=== PATIENT | male | born 1945 | race Asian ===

== ENCOUNTER 2019-05-12 15:04 | Observation (INO) | payer BC ==
[~2019-05-12] VITALS: Ht 175.3 cm; Wt 58.1 kg
[2019-05-12 16:58] LABS: PLATELET COUNT 397 K/uL (142-355)
[2019-05-12 17:07] VITALS: BP 137/64; TEMP 99.1; Ht 175.3 cm; Wt 58.1 kg
[2019-05-12 17:18] LABS: POTASSIUM 4.2 mmol/L (3.6-5.2); SODIUM 138 mmol/L (136-145)
[2019-05-12 17:20] LABS: PARTIAL THROMBOPLASTIN TIME 26.1 SECONDS (24.5-33.6)
[2019-05-12] MEDS ORDERED: LOTENSIN HCT1 TAB PO (17:56)
[2019-05-12] MEDS ORDERED: TAMS0.4C PO (17:57)
[2019-05-12] MEDS ORDERED: AMLODIPINE BESYLATE PO (17:57)
[2019-05-12] MEDS ORDERED: LIPITOR10 MG PO (17:58)
[2019-05-12 20:00] VITALS: BP 146/65; TEMP 99.1
[2019-05-13] VITALS (7 sets, daily range): BP systolic 118–150; BP diastolic 60–73; TEMP 97.8–99.5
[2019-05-13 05:34] LABS: PLATELET COUNT 383 K/uL (142-355)
[2019-05-13 05:51] LABS: POTASSIUM 4.1 mmol/L (3.6-5.2)
[2019-05-14 03:51] VITALS: BP 134/67; TEMP 98.9
[2019-05-14 05:30] LABS: PLATELET COUNT 357 K/uL (142-355)
[2019-05-14 05:31] LABS: POTASSIUM 3.9 mmol/L (3.6-5.2)
[2019-05-14 08:00] VITALS: BP 142/64; TEMP 98.3
[2019-05-14 12:00] VITALS: BP 174/80; TEMP 97.9
[2019-05-14 16:00] VITALS: BP 174/80; TEMP 97.9
[2019-05-14 19:58] VITALS: BP 153/56; TEMP 97.9
== END 2019-05-14 21:20 | disposition home or self-care (01) ==
LOC: MED/SURG 15:04
PROVIDERS: ADMIT Family Medicine
DX: R19.7 Diarrhea, unspecified (principal); R10.9 Unspecified abdominal pain; K59.00 Constipation, unspecified; R07.89 Other chest pain; R63.4 Abnormal weight loss; F17.210 Nicotine dependence, cigarettes, uncomplicated; J44.9 Chronic obstructive pulmonary disease, unspecified; R53.83 Other fatigue; R06.00 Dyspnea, unspecified; F43.23 Adjustment disorder with mixed anxiety and depressed mood
CPT/HCPCS: 36415; 80053; 82550; 82948; 83605; 83735; 84153; 84443; 84484; 85027; 85379; 85610; 85730; 93005; 96361; 96365; 96366; 96372; 99220; G0378; G0379; J1650; Q9963

== ENCOUNTER 2019-05-17 07:59 | Outpatient (CLI) | payer BC ==
[~2019-05-17 07:59] MED LIST: AMLODIPINE BESYLATE PO; LIPITOR10 MG PO; LOTENSIN HCT1 TAB PO; TAMS0.4C PO
== END 2019-05-17 18:57 | disposition home or self-care (01) ==
LOC: NM 07:59
DX: R07.89 Other chest pain (principal)
CPT/HCPCS: A9500

== ENCOUNTER 2019-05-18 14:03 | Outpatient (CLI) | payer BC ==
[2019-05-18 14:18] LABS: PLATELET COUNT 405 K/uL (142-355)
[2019-05-18 14:22] LABS: POTASSIUM 4.2 mmol/L (3.6-5.2)
== END 2019-05-18 19:30 | disposition home or self-care (01) ==
LOC: LABW 14:03
PROVIDERS: Nurse Practitioner Adult Health
DX: R93.1 Abnormal findings on diagnostic imaging of heart and coronary circulation (principal); R07.2 Precordial pain
CPT/HCPCS: 36415; 80048; 85027

== ENCOUNTER 2019-09-05 09:03 | Outpatient (CLI) | payer BC | END 2019-09-05 21:30 | disposition home or self-care (01) | LOC: RESP 09:03 | DX: I25.10 Atherosclerotic heart disease of native coronary artery without angina pectoris (principal) ==

== ENCOUNTER 2019-12-31 08:30 | Outpatient (CLI) | payer OTHER | END 2019-12-31 23:22 | disposition home or self-care (01) | LOC: US 08:30 | DX: R53.83 Other fatigue (principal) ==

== ENCOUNTER 2020-03-18 07:58 | Outpatient (CLI) | payer OTHER | END 2020-03-18 23:13 | disposition home or self-care (01) | LOC: NM 07:58 | PROVIDERS: ATTEND Family Medicine | DX: R94.39 Abnormal result of other cardiovascular function study (principal) | CPT/HCPCS: A9500 ==

== ENCOUNTER 2020-07-29 09:58 | Outpatient (CLI) | payer OTHER | END 2020-07-29 22:08 | disposition home or self-care (01) | LOC: RAD 09:58 | PROVIDERS: ATTEND Nurse Practitioner Family | DX: J20.8 Acute bronchitis due to other specified organisms (principal) ==

== ENCOUNTER 2021-08-11 08:57 | Outpatient (CLI) | payer OTHER | END 2021-08-11 18:57 | disposition home or self-care (01) | LOC: US 08:57 | PROVIDERS: ATTEND Family Medicine | DX: Z13.6 Encounter for screening for cardiovascular disorders (principal); Z87.891 Personal history of nicotine dependence ==

== ENCOUNTER 2021-09-07 07:58 | Outpatient (CLI) | payer OTHER | END 2021-09-07 18:57 | disposition home or self-care (01) | LOC: CT 07:58 | PROVIDERS: ATTEND Nurse Practitioner Family | DX: F17.200 Nicotine dependence, unspecified, uncomplicated (principal); R06.02 Shortness of breath ==

== ENCOUNTER 2022-10-02 15:45 | Emergency (ER) | payer OTHER ==
[~2022-10-02] VITALS: Ht 175.3 cm; Wt 56.7 kg
[2022-10-02 15:55] VITALS: TEMP 98.9
[2022-10-02 16:51] LABS: PLATELET COUNT 355 K/uL (142-355)
[2022-10-02 16:59] LABS: POTASSIUM 5.5 mmol/L (3.6-5.2)
[2022-10-02 20:30] VITALS: BP 145/72
== END 2022-10-02 21:20 | disposition home or self-care (01) ==
LOC: ED 15:45
PROVIDERS: Family Medicine
DX: K59.00 Constipation, unspecified (principal); R05.9 Cough, unspecified
CPT/HCPCS: 80053; 81002; 85027; 99283

== ENCOUNTER 2022-10-04 12:48 | Inpatient (IN) | payer OTHER ==
[~2022-10-04] VITALS: Ht 175.3 cm; Wt 58.8 kg
[2022-10-04 13:49] VITALS: BP 150/99; TEMP 97.5; Ht 175.3 cm; Wt 58.8 kg
[2022-10-04 14:08] LABS: PLATELET COUNT 388 K/uL (142-355)
[2022-10-04 14:13] LABS: POTASSIUM 3.9 mmol/L (3.6-5.2)
[2022-10-04 14:24] LABS: PARTIAL THROMBOPLASTIN TIME 87.3 SECONDS (23.9-36.7)
[2022-10-04] MEDS ORDERED: MONT10TA PO (15:29)
[2022-10-04] MEDS ORDERED: LIPITOR40 MG PO (15:30)
[2022-10-04] MEDS ORDERED: LORA10TA3 PO (15:31)
[2022-10-04] MEDS ORDERED: CARV6.25 PO (15:31)
[2022-10-04] MEDS ORDERED: CLOP75TA2 PO (15:32)
[2022-10-04] MEDS ORDERED: ALBUTEROL108 MCG/AC INH (15:34)
[2022-10-04] MEDS ORDERED: ALBUTEROL0.083 % INH (15:36)
[2022-10-04] MEDS ORDERED: IPRATROPIUM 0.06% NAS (15:40)
[2022-10-04] MEDS ORDERED: VITAMIN C100 MG PO (15:41)
[2022-10-04 16:19] VITALS: BP 163/66; TEMP 98.3
[2022-10-04 20:00] VITALS: BP 102/56; TEMP 98.6
[2022-10-05] VITALS: BP 125/66; TEMP 98.6
[2022-10-05 04:00] VITALS: BP 134/71; TEMP 98.9
[2022-10-05 07:06] LABS: PLATELET COUNT 391 K/uL (142-355)
[2022-10-05 07:15] LABS: POTASSIUM 4.1 mmol/L (3.6-5.2)
[2022-10-05 08:00] VITALS: BP 124/59; TEMP 98.4
[2022-10-05 12:00] VITALS: BP 130/65; TEMP 98
[2022-10-05 16:00] VITALS: BP 121/62; TEMP 98.6
[2022-10-05 20:00] VITALS: BP 137/74; TEMP 97.8
[2022-10-06] VITALS (7 sets, daily range): BP systolic 113–190; BP diastolic 59–66; TEMP 97.8–98.6
[2022-10-06 04:53] LABS: PLATELET COUNT 409 K/uL (142-355)
[2022-10-06 04:56] LABS: POTASSIUM 3.7 mmol/L (3.6-5.2)
[2022-10-07 04:00] VITALS: BP 120/55; TEMP 98
[2022-10-07 04:36] LABS: PLATELET COUNT 387 K/uL (142-355)
[2022-10-07 04:53] LABS: POTASSIUM 3.7 mmol/L (3.6-5.2)
[2022-10-07 08:00] VITALS: BP 127/69; TEMP 97.8
[2022-10-07 12:00] VITALS: BP 129/75; TEMP 97.5
[2022-10-07 15:48] VITALS: BP 148/65; TEMP 97.8
[2022-10-07 19:55] VITALS: BP 143/69; TEMP 97.7
[2022-10-07 23:49] VITALS: BP 136/71; TEMP 99.1
[2022-10-08 04:00] VITALS: BP 141/75; TEMP 99.3
[2022-10-08 04:40] LABS: PLATELET COUNT 434 K/uL (142-355)
[2022-10-08 04:52] LABS: POTASSIUM 3.7 mmol/L (3.6-5.2); SODIUM 138 mmol/L (136-145)
[2022-10-08 08:00] VITALS: BP 151/83; TEMP 98.6
[2022-10-08 12:00] VITALS: BP 148/80; TEMP 98.5
[2022-10-08 16:00] VITALS: BP 145/74; TEMP 98.7
[2022-10-08 20:00] VITALS: BP 145/81; TEMP 98.5
[2022-10-09] VITALS: BP 125/80; TEMP 98.5
[2022-10-09 04:00] VITALS: BP 166/86; TEMP 98.5
[2022-10-09 05:44] LABS: POTASSIUM 3.8 mmol/L (3.6-5.2)
[2022-10-09 07:57] VITALS: BP 164/71; TEMP 98.1
[2022-10-09 07:59] LABS: PLATELET COUNT 431 K/uL (142-355)
[2022-10-09 12:02] VITALS: BP 136/73; TEMP 98.2
[2022-10-09 16:00] VITALS: BP 143/76; TEMP 98.5
[2022-10-09 19:43] VITALS: BP 155/75; TEMP 97.9
[2022-10-10] VITALS (7 sets, daily range): BP systolic 136–147; BP diastolic 72–82; TEMP 97.3–98.8
[2022-10-10 04:50] LABS: PLATELET COUNT 454 K/uL (142-355)
[2022-10-10 04:55] LABS: POTASSIUM 3.9 mmol/L (3.6-5.2)
[2022-10-11 03:34] VITALS: BP 123/64; TEMP 98.6
[2022-10-11 04:48] LABS: POTASSIUM 4.3 mmol/L (3.6-5.2)
[2022-10-11 06:06] LABS: PLATELET COUNT 501 K/uL (142-355)
[2022-10-11 08:29] VITALS: BP 136/73; TEMP 98.3
[2022-10-11 12:00] VITALS: BP 129/70; TEMP 98.4
[2022-10-11 16:23] VITALS: BP 133/84; TEMP 98
[2022-10-11 20:00] VITALS: BP 145/77; TEMP 98.5
[2022-10-11 23:51] VITALS: BP 122/73; TEMP 98.5
[2022-10-12 03:51] VITALS: BP 157/80; TEMP 97.7
[2022-10-12 05:07] LABS: PLATELET COUNT 483 K/uL (142-355)
[2022-10-12 05:11] LABS: POTASSIUM 4.9 mmol/L (3.6-5.2)
[2022-10-12 08:00] VITALS: BP 162/86; TEMP 98.1
[2022-10-12 12:00] VITALS: BP 139/74; TEMP 98.1
[2022-10-12 16:00] VITALS: BP 150/74; TEMP 98.2
[2022-10-12 19:53] VITALS: BP 145/71; TEMP 97.6
[2022-10-12 23:34] VITALS: BP 152/73; TEMP 99.4
[2022-10-13 03:40] VITALS: BP 158/76; TEMP 98.6
[2022-10-13 08:00] VITALS: BP 151/72; TEMP 98.3
[2022-10-13 10:13] LABS: PLATELET COUNT 409 K/uL (142-355)
[2022-10-13 12:00] VITALS: BP 140/74; TEMP 98.5
[2022-10-13 16:00] VITALS: BP 146/71; TEMP 97.8
[2022-10-13 19:39] VITALS: BP 151/67; TEMP 98.8
[2022-10-13 23:42] VITALS: BP 135/69; TEMP 98.5
[2022-10-14 04:00] VITALS: BP 149/77; TEMP 97.8
[2022-10-14 04:00] LABS: SODIUM 132 mmol/L (136-145)
[2022-10-14 04:02] LABS: PLATELET COUNT 455 K/uL (142-355)
[2022-10-14 08:03] VITALS: BP 143/73; TEMP 98.5
[2022-10-14 11:57] VITALS: BP 126/68; TEMP 97.7
[2022-10-14 16:00] VITALS: BP 150/76; TEMP 98.1
[2022-10-14 20:00] VITALS: BP 134/69; TEMP 98.7
[2022-10-15] VITALS: BP 115/63; TEMP 98.7
[2022-10-15 04:00] VITALS: BP 115/60; TEMP 98.9
[2022-10-15 05:46] LABS: PLATELET COUNT 427 K/uL (142-355)
[2022-10-15 05:53] LABS: POTASSIUM 4.2 mmol/L (3.6-5.2)
[2022-10-15 08:00] VITALS: BP 112/61; TEMP 98.1
[2022-10-15 12:00] VITALS: BP 128/70; TEMP 98
[2022-10-15 16:00] VITALS: BP 142/63; TEMP 99.4
[2022-10-15 19:52] VITALS: BP 125/62; TEMP 98
[2022-10-16] VITALS: BP 119/62; TEMP 98
[2022-10-16 04:00] VITALS: BP 125/65; TEMP 98
[2022-10-16 04:59] LABS: PLATELET COUNT 417 K/uL (142-355)
[2022-10-16 05:18] LABS: POTASSIUM 4.3 mmol/L (3.6-5.2)
[2022-10-16 08:00] VITALS: BP 137/70; TEMP 98.4
[2022-10-16 12:00] VITALS: BP 132/63; TEMP 99
[2022-10-16 16:00] VITALS: BP 107/63; TEMP 100.3
[2022-10-16 20:00] VITALS: BP 142/65; TEMP 98.7
[2022-10-17] VITALS: BP 130/65; TEMP 99
[2022-10-17 04:00] VITALS: BP 124/68; TEMP 99.2
[2022-10-17 05:31] LABS: PLATELET COUNT 388 K/uL (142-355)
[2022-10-17 05:39] LABS: POTASSIUM 3.7 mmol/L (3.6-5.2)
[2022-10-17 08:00] VITALS: BP 119/64; TEMP 99
[2022-10-17 12:00] VITALS: BP 158/70; TEMP 98.1
== END 2022-10-17 19:13 | disposition short-term general hospital (02) | DRG 438 ==
LOC: MED/SURG 12:48
PROVIDERS: ADMIT Family Medicine; ATTEND Family Medicine
DX: K85.80 Other acute pancreatitis without necrosis or infection (principal); J18.9 Pneumonia, unspecified organism; E87.1 Hypo-osmolality and hyponatremia; K86.3 Pseudocyst of pancreas; E46 Unspecified protein-calorie malnutrition; J44.1 Chronic obstructive pulmonary disease with (acute) exacerbation; Z68.1 Body mass index [BMI] 19.9 or less, adult; R10.9 Unspecified abdominal pain; E86.0 Dehydration; E88.09 Other disorders of plasma-protein metabolism, not elsewhere classified; E87.8 Other disorders of electrolyte and fluid balance, not elsewhere classified; F32.A Depression, unspecified; K80.80 Other cholelithiasis without obstruction; I10 Essential (primary) hypertension; E78.49 Other hyperlipidemia; K21.9 Gastro-esophageal reflux disease without esophagitis; R63.0 Anorexia; N40.1 Benign prostatic hyperplasia with lower urinary tract symptoms; R33.8 Other retention of urine; R53.81 Other malaise; R73.9 Hyperglycemia, unspecified; D64.89 Other specified anemias; F17.200 Nicotine dependence, unspecified, uncomplicated; R07.89 Other chest pain; U09.9 Post COVID-19 condition, unspecified; R12 Heartburn
CPT/HCPCS: 36415; 36600; 80053; 80061; 81002; 82150; 82550; 82728; 82805; 82948; 83036; 83690; 83735; 83880; 84100; 84154; 84443; 84484; 85027; 85379; 85610; 85730; 87040; 93005; 94664; 94667; 94668; 94760; 96361; 96365; 96367; 96372; 96375; A9576; J0456; J0696; J1200; J1650; J1815; J2175; J2185; J2270; J2405; J2543; J2930; J3475; J3490; P9047; Q9963